=== PATIENT | female | born 1980 | race Caucasian/White ===

== ENCOUNTER 2021-07-12 00:49 | Emergency (ER) | payer OTHER ==
[2021-07-12 01:27] LABS: BILIRUBIN 1+ mg/dL (NEGATIVE); BLOOD 3+ Ery/uL (NEGATIVE); GLUCOSE (U) NORMAL (NORMAL); LEUKOCYTES 3+ Leu/uL (NEGATIVE); NITRITE POSITIVE (NEGATIVE); PROTEIN 3+ mg/dL (NEGATIVE); pH 6.5 (5.0-9.0)
[2021-07-12 01:50] LABS: BASOPHIL 0.6 % (0-2); EOSINOPHIL 3.9 % (0-5); HCT 36.6 % (37.0-47.0); HGB 11.5 g/dl (12.5-16.0); LYMPHOCYTE 15.1 % (15-48); MCH 28.8 pg (25.0-31.0); MCHC 31.4 g/dL (32.0-36.0); MCV 91.7 fL (78.0-100.0); MONOCYTE 10.2 % (0-12); MPV 8.8 fL (6.0-9.5); NEUTROPHIL 69.9 % (41-80); NRBC 0; PLT 535 K/uL (150-400); RBC 3.99 M/uL (4.20-5.40); RDW 14.4 % (11.5-14.0); WBC 11.8 K/uL (4.0-10.5)
[2021-07-12 01:54] LABS: CLARITY CLOUDY (CLEAR); COLOR BROWN (YELLOW)
[2021-07-12 01:57] LABS: BACTERIA 2+; URINARY RBC TNTC; URINARY WBC TNTC
[2021-07-12 02:00] LABS: ALBUMIN 3.1 g/dL (3.4-5.0); BILIRUBIN - TOTAL 0.4 mg/dL (0.2-1.0); CREATININE 1.15 mg/dL (0.51-0.95); GLOBULIN (CALCULATION) 4.4 g/dL; POTASSIUM 4.3 mmol/L (3.5-5.1); TOTAL PROTEIN 7.5 g/dL (6.4-8.2)
[2021-07-12 02:10] LABS: LACTIC ACID 0.6 mmol/L (0.4-1.9)
== END 2021-07-12 09:05 | disposition other institution (70) ==
LOC: FER 00:49
PROVIDERS: Internal Medicine
DX: A41.9 Sepsis, unspecified organism (principal); N13.6 Pyonephrosis; R65.20 Severe sepsis without septic shock; F17.210 Nicotine dependence, cigarettes, uncomplicated; Z88.2 Allergy status to sulfonamides
CPT/HCPCS: 36415; 80053; 81001; 83605; 84145; 85025; 87040; J1170; J2405; J2543; J7030